=== PATIENT | female | born 1995 | race African-American/Black ===

== ENCOUNTER 2018-08-02 22:58 | Emergency (ER) | payer SELFPAY ==
[~2018-08-02] VITALS: Ht 149.9 cm; Wt 63.5 kg
[2018-08-02] MEDS: ONDANSETRON 4 MG/2 ML VIAL IV ONE (23:55)
[2018-08-02] MEDS ORDERED: ONDANSETRON ODT 4 MG TAB.RAPDIS ONE (23:57)
[2018-08-03] MEDS ORDERED: ONDANSETRON ODT 4 MG TAB.RAPDIS SL ONE
--- NOTE | 2018-08-03 00:02 | NUR ---
Patient vomited medication immediately after administration. ERMD notified.
[2018-08-03] MEDS ORDERED: ONDANSETRON 4 MG/2 ML VIAL ONE (00:06)
[2018-08-03] MEDS: ONDANSETRON 4 MG/2 ML VIAL IV ONE (00:07)
[2018-08-03 00:13] LABS: *URINE HCG, QUAL NEGATIVE (NEGATIVE)
[2018-08-03] MEDS ORDERED: LORAZEPAM 2 MG/1 ML VIAL IV ONE (00:30)
--- NOTE | 2018-08-03 00:45 | NUR ---
Patient discharged to home in stable conditon. Written and verbal after care instructions given. Patient verbalizes understanding of instructions. Patient instructed not to drive. Patient ambulated out of dept with stable gait.
[2018-08-03 00:49] VITALS: BP 119/68
== END 2018-08-03 00:45 | disposition home or self-care (01) ==
LOC: ER 23:00
DX: F12.129 Cannabis abuse with intoxication, unspecified (principal); F41.9 Anxiety disorder, unspecified; R20.2 Paresthesia of skin
CPT/HCPCS: 84703; 93005; 96374; 99284; J2405; A4663; Q0162

== ENCOUNTER 2018-08-03 11:28 | Emergency (ER) | payer OTHER ==
[~2018-08-03] VITALS: Ht 152.4 cm; Wt 63.5 kg
--- NOTE | 2018-08-03 11:28 | NUR ---
PT A/OX4, PRESENTS TO THE ER W/ FAMILY MEMBERS C/O ANXIETY AND PANIC ATTACK. PER FAMILY'S REPORT, PT IS CURRENTLY EXPERIENCING A INTER-RELATIONAL STRESS. PT WAS SEEN IN THIS ER W/ THE SAME COMPLAINT THIS AM. VS WNL. PT DENIES PAIN, C/P, SOB, N/V/D, DIZZINESS, HEADACHE.
[2018-08-03] MEDS ORDERED: LORAZEPAM 1 MG TABLET ONE (11:38)
[2018-08-03] MEDS ORDERED: LORAZEPAM 2 MG/1 ML VIAL ONE (11:43)
[2018-08-03] MEDS ORDERED: LORAZEPAM 0.5 MG TABLET PO ONE (11:45)
[2018-08-03] MEDS ORDERED: LORAZEPAM 2 MG/1 ML VIAL IM ONE (11:45)
[2018-08-03 11:51] VITALS: BP 122/72
--- NOTE | 2018-08-03 11:51 | NUR ---
Patient discharged to home in stable conditon. Written and verbal after care instructions given. Patient verbalizes understanding of instructions. ALL BELONGINGS W/ PT. PT SELF-AMBULATED W/O DIFFICULTY. PT WILL BE DRIVEN HOME BY FAMILY MEMBER IN PRIVATE VEHICLE.
== END 2018-08-03 11:52 | disposition home or self-care (01) ==
LOC: ER 11:28
DX: F41.9 Anxiety disorder, unspecified (principal); F41.0 Panic disorder [episodic paroxysmal anxiety]; F12.10 Cannabis abuse, uncomplicated
CPT/HCPCS: 96372; 99284; J2060; A4663